=== PATIENT | female | born 1995 | race Caucasian/White ===

== ENCOUNTER 2022-09-10 16:28 | Outpatient (CLI) | payer BC ==
[~2022-09-10] VITALS: Ht 154.9 cm; Wt 61.8 kg
--- NOTE | 2022-09-10 16:30 | NUR ---
PT ARRIVES AMBULATORY TO UNIT C/O SEVERE RIGHT LOWER BACK PAIN. STATES PAIN IS CONSTANT. STARTED THIS MORNING AT 0800. HAS CAUSED HER TO VOMIT X1. WAS SEEN IN [facility] AND HAD A UA TODAY, IT WAS NEGATIVE. NO FEVER. DENIES CONTRACTIONS. DENIES LOF. REPORTS POSITIVE MOVEMENT. UNABLE TO GET RELIEF WITH HEATING PAD, HAS NOT TRIED ANY OTHER PAIN RELIEF OPTIONS. EFM TRACING CATEGORY 1 UPON ARRIVAL. SEE PHYSICIAN NOTIFICATION.
[2022-09-10] MEDS ORDERED: PRENATAL (16:56)
[2022-09-10 17:00] VITALS: BP 100/52; PULSE 71; TEMP 98.4
[2022-09-10 17:30] VITALS: BP 109/58; PULSE 79
[2022-09-10 18:00] VITALS: BP 97/51; PULSE 79
[2022-09-10 18:15] LABS: BASO % 0.2 % (0.0-2.0); EOS % 0.1 % (0.0-4.0); GRAN # 9.9 K/mm3 (1.4-6.5); GRAN % 84.8 % (42.2-75.2); HEMOGLOBIN 11.5 g/dl (12.5-16.0); LYMPH # 1.1 K/mm3 (1.2-3.4); LYMPH % 9.3 % (20.0-51.0); MEAN CELL VOLUME 95 fl (80.0-100.0); MEAN CORPUSCULAR HEMOGLOBIN 35 pg (27-31); MEAN CORPUSCULAR HGB CONC 37 g/dl (33.0-37.0); MEAN PLATELET VOLUME 10.1 fl (7.4-10.4); MONO # 0.6 K/mm3 (0.1-0.6); MONO % 5.4 % (1.7-9.3); PLATELET COUNT 146 K/mm3 (130-400); RED BLOOD COUNT 3.32 M/mm3 (4.10-5.30); REDCELL DISTRIBUTION WIDTH-CV 11.9 % (11.5-14.5)
[2022-09-10 18:21] LABS: HEMATOCRIT 31.5 % (37.0-47.0)
[2022-09-10 18:33] LABS: BILIRUBIN,TOTAL 0.4 mg/dL (0.2-1.2); CALCIUM 8.9 mg/dL (8.4-10.2); CREATININE, serum 0.81 mg/dL (0.57-1.11); POTASSIUM 3.8 mmol/L (3.5-4.5); TOTAL PROTEIN 5.9 gm/dL (6.2-8.1)
--- NOTE | 2022-09-10 18:45 | NUR ---
Pt states she is feeling a little better after flexeril and tylenol. Report pain still shooting down her legs. Pt denies feeling contractions states she just "feels sick to my stomach." 1853: called and updated on pt's status. See physican notification. 1902: Monitors off and pt updated on ' orders. Pt agreeable and questions answered by this RN. Monitor off to change. 1929: Discharge education given to pt who verbalizes her understanding. Pt ambulated off unit in stable condition.
[2022-09-10 19:03] VITALS: BP 118/66; PULSE 75; TEMP 98.1
[2022-09-11] MEDS ORDERED: TYLENOL 500MG500 MG PO (11:29)
== END 2022-09-10 19:30 | disposition home or self-care (01) ==
LOC: LDRO 16:28
PROVIDERS: Obstetrics & Gynecology
DX: Z34.93 Encounter for supervision of normal pregnancy, unspecified, third trimester (principal); Z3A.32 32 weeks gestation of pregnancy

== ENCOUNTER 2022-09-11 11:11 | Outpatient (CLI) | payer BC ==
[~2022-09-11] VITALS: Ht 154.9 cm; Wt 61.4 kg
[~2022-09-11 11:11] MED LIST: PRENATAL
[2022-09-11] MEDS ORDERED: TYLENOL 500MG500 MG PO (11:29)
[2022-09-11 11:35] VITALS: BP 108/57; PULSE 97; TEMP 98.9
--- NOTE | 2022-09-11 11:35 | NUR ---
1105- Pt presents to hospital, was seen yesterday with complaints of severe back pain. Was told by RN to return today for renal US if back pain continues. This RN calls Dr Cortez, updated on Pt complaints and recommendation by Dr Arce yesterday. TORB received to do a labor assessment and order renal US. 1115- Pt into bathroom to change into gown. 1119- Pt into bed. EFM and TOCO on and tracing. VSS. O2 sat monitor on and tracing maternal HR. Pt states that pain currently 5/10 with certain movements. Points to right lower back and states when she moves her leg a certain way she gets a sharp, pinch in that area. Denies the pain shooting down buttock or leg. 1122- US tech at bedside for renal US. EFM and TOCO off at this time. Assessments completed. Pt denies cramping, VB, LOF. +FM per Pt. 1132- US complete. EFM and TOCO on. Discussed POC. Water provided to drink. Pt denies questions, call light within reach.
[2022-09-11 12:00] VITALS: BP 106/55; PULSE 85
[2022-09-11 12:25] VITALS: BP 108/65; PULSE 83
--- NOTE | 2022-09-11 12:45 | NUR ---
1220- Dr Cortez on speaker phone at bedside. Discusses test results and POC. Questions about traveling to [place] this weekend answered. MD encouraged Pt to seek medical care if pain becomes severe again. Understanding verbalized. 1225- EFM and TOCO off. Pt up to change into street clothes. 1240- Discharge paperwork given and explained. Pt ambulates off unit independently, stable condition.
[2022-09-12] MEDS ORDERED: MACROBID 1100 MG/CAP PO (17:35)
[2022-09-12] MEDS ORDERED: PERCOCET 325 MG1 TA2 PO (17:35)
== END 2022-09-11 12:45 | disposition home or self-care (01) ==
LOC: LDRO 11:11
DX: O26.893 Other specified pregnancy related conditions, third trimester (principal); M54.9 Dorsalgia, unspecified; Z3A.32 32 weeks gestation of pregnancy

== ENCOUNTER 2022-09-12 13:00 | Day surgery (SDC) | payer BC ==
[~2022-09-12] VITALS: Ht 154.9 cm; Wt 59.1 kg
[2022-09-12] VITALS (14 sets, daily range): BP systolic 103–121; BP diastolic 51–67; PULSE 73–96; TEMP 97.7–99
--- NOTE | 2022-09-12 02:35 | NUR ---
0235- PT PRESENTS TO LDR COMPLAINING OF RIGHT BACK PAIN AND SUPRAPUBIC PAIN, AMBULATORY TO ROOM LR6, CHANGED INTO GOWN. 0306- EFM X2 APPLIED. PT DENIES LEAKING FLUID OR VAGINAL BLEEDING. STATES SHE IS CRAMPING SOME, BUT HARD TO TELL, AND IS FEELING HER BABY MOVE. PLAN OF CARE FOR LABOR CHECK DISCUSSED AND QUESTIONS ANSWERED. 0325- DR MAJOR AT DESK AND IS UPDATED CHARTED, ORDERS RECEIVED. 0355- IV START TO RIGHT WRIST X3 ATTEMPTS. BLOOD DRAWN FOR LABS. LR INFUSING ORDERED. 0425- VISTARIL GIVEN ORDERED. PT REPORTS SHE IS MILDLY NAUSEOUS AND THE PAIN IS GETTING MUCH WORSE. SVE BY THIS NURSE 0/0/-3 WITH NO FLUID OR BLOOD NOTED ON EXAM. 0430- DR MAJOR AT DESK AND UPDATED ON PT DISCOMFORT. 0437- PT UP TO BATHROOM. 0440- PT BACK TO BED AND BACK ON MONITORS. 0450- IV FLUID BOLUS COMPLETE. SECOND BAG HUNG WITH MAINTENENCE RATE PER DR MAJOR. 0515- PT SITTING IN BED, WRITHING WITH PAIN. DR MAJOR UPDATED AND ORDERS FOR MORPHINE AND ZOFRAN GIVEN 0530- IV MORPHINE AND ZOFRAN GIVEN ORDERED. 0535- PT REPORTS IMPROVEMENT IN PAIN. NOW 10/29. 0620- PT REPORTS HER PAIN IS BETTER AND SHE HAS BEEN ABLE TO RELAX. HER NAUSEA IS ALSO BETTER AT THIS TIME. DISCUSSED PLAN OF CARE WITH PT AND QUESTIONS ANSWERED.
[2022-09-12 04:04] LABS: COLLECTION METHOD CLEAN CATCH
[2022-09-12 04:10] LABS: URINE COLOR Yellow (YELLOW); URINE GLUCOSE Negative (NEGATIVE); URINE PROTEIN(semi-quant) Negative (NEGATIVE)
[2022-09-12 04:11] LABS: URINE BLOOD TRACE-INTACT (NEGATIVE); URINE KETONE TRACE (NEGATIVE); URINE NITRATE Negative (NEGATIVE); URINE UROBILINOGEN 0.2 E.U/dL (0.2-1.0)
[2022-09-12 04:14] LABS: URINE APPEARANCE Hazy (CLEAR/HAZY)
[2022-09-12 04:17] LABS: AMORPHOUS CRYSTAL Present (NOT PRESENT); MUCOUS Present (NOT PRESENT); URINE BACTERIA Rare /hpf (NONE SEEN); URINE RBC 0-2 /hpf (0-2)
[2022-09-12 05:30] LABS: HEMOGLOBIN 10.7 g/dl (12.5-16.0); MEAN CELL VOLUME 97 fl (80.0-100.0); MEAN CORPUSCULAR HEMOGLOBIN 34 pg (27-31); MEAN CORPUSCULAR HGB CONC 35 g/dl (33.0-37.0); PLATELET COUNT 156 K/mm3 (130-400); RED BLOOD COUNT 3.11 M/mm3 (4.10-5.30); REDCELL DISTRIBUTION WIDTH-CV 12.2 % (11.5-14.5)
[2022-09-12 05:33] LABS: HEMATOCRIT 30.3 % (37.0-47.0)
[2022-09-12 05:47] LABS: ALBUMIN 2.8 gm/dL (3.5-5.0); BILIRUBIN,TOTAL 0.4 mg/dL (0.2-1.2); CALCIUM 8.4 mg/dL (8.4-10.2); CREATININE, serum 0.94 mg/dL (0.57-1.11); POTASSIUM 3.4 mmol/L (3.5-4.5); TOTAL PROTEIN 5.7 gm/dL (6.2-8.1)
--- NOTE | 2022-09-12 07:11 | NUR ---
NOTIFIED, SEE PHYSICIAN NOTIFICATION. ORDER FOR CMP AT THIS TIME, RN SAW RESULTS AFTER CONCLUSION OF NOTIFICATION, PLAN TO NOTIFY OF RESULTS WHEN HE ARRIVES TO EVALUATE PATIENT. RN AT BEDSIDE TO REASSESS VITAL SIGNS, PATIENT AFEBRILE AND VITAL SIGNS WITHIN NORMAL LIMITS AT THIS TIME. PATIENT REPORTS INCREASING PAIN THAT IS NOW ABOUT A 7-8 OUT OF 10. PATIENT EDUCATED THAT WE ARE GOING OT WAIT FOR TO EVALUATE AND SEE WHAT THE PLAN OF CARE IS.
--- NOTE | 2022-09-12 08:05 | NUR ---
AT BEDSIDE TO DISCUSS PATIENT PLAN OF CARE. PATIENT INFORMED ON PLAN TO CONSULT UROLOGY AND SEE WHAT THEY DECIDE IS BEST. DR. CALDERON REASSURES PATIENT THAT SHE LOOKS GOOD FAR AND BABY IS DOING WELL WELL. PSTIENT REQUESTING SOMETHING MORE FOR PAIN AT THIS TIME.
--- NOTE | 2022-09-12 09:00 | NUR ---
AT NURSES STATION. VERBAL ORDER TO PERFORM NST EVERY SHIFT FOR MONIOTRING, CONTINUOUS MONITORING NOT NECESSARY AT THIS TIME. ORDERS FOR PAIN MANAGEMENT ALSO REQUESTED DUE TO THE ORDERS FROM [employer]MICAL [employer]JECT ENGINEER ONLY BEING A ONE TIME ORDER.
[~2022-09-12 13:00] MED LIST changes: +TYLENOL 500MG500 MG PO
--- NOTE | 2022-09-12 17:27 | NUR ---
1540 PT TO OR VIA BED ACCOMPANIED BY 2 OR NURSES
[2022-09-12] MEDS ORDERED: MACROBID 1100 MG/CAP PO (17:35)
[2022-09-12] MEDS ORDERED: PERCOCET 325 MG1 TA2 PO (17:35)
--- NOTE | 2022-09-12 18:03 | NUR ---
1750 PT TO RM 222 VIA BED ACCOMPANIED BY PACU NURSE X1, REPORT RECIEVED AND VITAL SIGNS STABLE, FM APPLIED FOR NST
--- NOTE | 2022-09-12 18:45 | NUR ---
3105-1520 FHT BASELINE 130'S WITH GOOD VARIABILITY AND ACCELS NOTED. CONTRACTIONS NOTED EVERY 1-2 MINUTES LASTING 40-60 SECONDS AND MILD. NOT ALL FELT BY PT. DR LUDWIG AWARE OF CONTRACTIONS ON MONITOR. EFM OFF AND GETTING READY FOR DISCHARGE TO HOME.
== END 2022-09-12 20:20 | disposition home or self-care (01) ==
LOC: SDCO 13:00 → OB 15:22 → SDCO 15:28
PROVIDERS: Student in an Organized Health Care Education/Training Program
DX: N13.2 Hydronephrosis with renal and ureteral calculous obstruction (principal)
CPT/HCPCS: OP; C1769; C2617; J0330; J1100; J2270; J2405; J2704; J2765; J3010; J7120